=== PATIENT | female | born 1980 | race American Indian/Alaskan Native ===

== ENCOUNTER 2020-06-08 15:54 | Emergency (ER) | payer OTHER ==
[2020-06-08 17:05] VITALS: BP 118/69
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
== END 2020-06-08 19:20 | disposition home or self-care (01) ==
LOC: ED 15:54
DX: S13.4XXA Sprain of ligaments of cervical spine, initial encounter (principal); S39.012A Strain of muscle, fascia and tendon of lower back, initial encounter; S46.912A Strain of unspecified muscle, fascia and tendon at shoulder and upper arm level, left arm, initial encounter; Z79.899 Other long term (current) drug therapy; Z98.890 Other specified postprocedural states; V49.49XA Driver injured in collision with other motor vehicles in traffic accident, initial encounter; Y92.410 Unspecified street and highway as the place of occurrence of the external cause; Y93.89 Activity, other specified; Y99.8 Other external cause status
CPT/HCPCS: 72040; 72070; 72100

== ENCOUNTER 2020-10-11 09:35 | Emergency (ER) | payer OTHER ==
[2020-10-11] MEDS ORDERED: dexAMETHasone 4 MG/ML VIAL IM STA (14:09)
[2020-10-11] MEDS ORDERED: ACETAMINOPHEN 500 MG TAB PO ONE (14:09)
[2020-10-11] MEDS ORDERED: IBUPROFEN 800 MG TAB PO STA (14:09)
--- NOTE | 2020-10-11 14:16 | Emergency Department Report ---
ED General Adult HPI - General Chief complaint: Headache Stated complaint: SEVERE HEADACHE LT SODE SWELLING Time Seen by Provider: 10/11/20 11:47 Source: patient Mode of arrival: Ambulatory Limitations: No Limitations - History of Present Illness Initial comments: 40-year-old -[place] female presents with complaints of left-sided headache and forehead swelling x2 days. She denies any vision changes, nausea/vomiting, fever/chills/sweats, worst headache of her life/thunderclap onset, dizziness, numbness/tingling/weakness in her limbs, or difficulty with speech/ambulation. She rates her current headache as 8/10 in severity states it is not improved with Tylenol. No history of migraines per patient. She also denies any nasal congestion or ear pain. No past medical history per patient. - Related Data Previous Rx's Medication Instructions Recorded Last Taken Type Amoxicillin/Potassium Clav 1 each PO BID 10 Days #20 tablet 10/11/20 Unknown Rx [Augmentin 875-125 Tablet] Naproxen 500 mg PO Q12H PRN #12 tablet 10/11/20 Unknown Rx Prednisone [predniSONE 10 mg 10 mg PO .TAPER #1 tab.ds.pk 10/11/20 Unknown Rx (6-Day Pack, 21 Tabs)] Allergies Allergy/AdvReac Type Severity Reaction Status Date / Time No Known Allergies Allergy Verified 10/11/20 11:40 ED Review of Systems ROS: Stated complaint: SEVERE HEADACHE LT SODE SWELLING Other details as noted in HPI Constitutional: denies: chills, fever, malaise ENT: denies: ear pain, throat pain Respiratory: denies: cough Cardiovascular: denies: chest pain Skin: denies: rash, change in color Neurological: headache. denies: numbness, paresthesias, abnormal gait ED Past Medical Hx - Past Medical History Previous Medical History?: No - Surgical History Additional Surgical History: R -carpel tunnel - Social History Smoking Status: Never Smoker Substance Use Type: None - Medications Home Medications: Home Medications Medication Instructions Recorded Confirmed Last Taken Type Amoxicillin/Potassium Clav 1 each PO BID 10 Days #20 tablet 10/11/20 Unknown Rx [Augmentin 875-125 Tablet] Naproxen 500 mg PO Q12H PRN #12 tablet 10/11/20 Unknown Rx Prednisone [predniSONE 10 mg 10 mg PO .TAPER #1 tab.ds.pk 10/11/20 Unknown Rx (6-Day Pack, 21 Tabs)] ED Physical Exam - General Limitations: No Limitations General appearance: alert, in no apparent distress - Head Head exam: Present: atraumatic, normocephalic - Eye Eye exam: Present: normal appearance. Absent: scleral icterus - ENT ENT exam: Present: normal exam, TM's normal bilaterally, other (Tenderness to palpation noted to the left frontal sinuses and ethmoid sinuses with minimal overlying swelling; no erythema is noted; there is tenderness over the left temporal area also without obvious swelling of the temporal artery) - Neck Neck exam: Present: normal inspection, full ROM. Absent: tenderness - Respiratory Respiratory exam: Present: normal lung sounds bilaterally. Absent: respiratory distress - Cardiovascular Cardiovascular Exam: Present: regular rate, normal rhythm. Absent: systolic murmur, diastolic murmur, rubs, gallop - Neurological Exam Neurological exam: Present: alert, oriented X3, CN II-XII intact, normal gait. Absent: motor sensory deficit - Expanded Neurological Exam Expanded Cerebellar function: Finger to Nose: Normal, Heel to English: Normal, Romberg: Normal Sensory exam: Upper Extremity Light Touch: Normal, Lower Extremity Light Touch: Normal Motor strength exam: RUE: 4, LUE: 4, RLE: 4, LLE: 4 Best Eye Response (Sterling): (4) open spontaneously Best Motor Response (Sterling): (6) obeys commands Best Verbal Response (Luis): (5) oriented Luis Total: 15 - Psychiatric Psychiatric exam: Present: normal affect, normal mood - Skin Skin exam: Present: warm, dry, intact, normal color. Absent: rash ED Course Vital Signs 10/11/20 10/11/20 11:44 15:26 Temperature 98.2 F Pulse Rate 64 78 Respiratory 20 18 Rate Blood Pressure 118/72 Blood Pressure 120/70 [Left] O2 Sat by Pulse 100 97 Oximetry ED Medical Decision Making - Lab Data Result diagrams: 10/11/20 13:00 Lab Results 10/11/20 10/11/20 10/11/20 Range/Units 13:00 13:00 13:00 WBC 4.6 (4.5-11.0) K/mm3 RBC 3.71 (3.65-5.03) M/mm3 Hgb 9.6 L (10.1-14.3) gm/dl Hct 29.6 L (30.3-42.9) % MCV 80 (79-97) fl MCH 26 L (28-32) pg MCHC 33 (30-34) % RDW 15.3 H (13.2-15.2) % Plt Count 292 (140-440) K/mm3 Lymph % (Auto) 36.9 H (13.4-35.0) % Alcorn % (Auto) 7.9 H (0.0-7.3) % Eos % (Auto) 2.9 (0.0-4.3) % Baso % (Auto) 0.8 (0.0-1.8) % Lymph # (Auto) 1.7 (1.2-5.4) K/mm3 Alcorn # (Auto) 0.4 (0.0-0.8) K/mm3 Eos # (Auto) 0.1 (0.0-0.4) K/mm3 Baso # (Auto) 0.0 (0.0-0.1) K/mm3 Seg Neutrophils % 51.5 (40.0-70.0) % Seg Neutrophils # 2.4 (1.8-7.7) K/mm3 ESR 14 (0-20) mm/Hr C-Reactive Protein 0.10 (0.00-1.30) mg/dL HCG, Qual Negative (Negative) - Medical Decision Making 40-year-old -[place] female presents with complaints of left-sided headache and forehead swelling x2 days. She denies any vision changes, nausea/vomiting, fever/chills/sweats, worst headache of her life/thunderclap onset, dizziness, numbness/tingling/weakness in her limbs, or difficulty with speech/ambulation. She rates her current headache as 8/10 in severity states it is not improved with Tylenol. No history of migraines per patient. She also denies any nasal congestion or ear pain. No past medical history per patient. No significant abnormalities noted on CBC, ESR, or CRP. Neuro exam is normal. Pain swelling and sinus area for sinusitis with prednisone and Augmentin. Patient follows up within 2 days for recheck with her primary care doctor (she states she does currently follow with a PCP). Her vitals are are normal, she is well-appearing, she is stable for discharge home. Discussed presumptive diagnosis, care plan, signs and symptoms that should prompt immediate return to the emergency department with patient who verbalized understanding. Critical care attestation.: If time is entered above; I have spent that time in minutes in the direct care of this critically ill patient, excluding procedure time. ED Disposition Clinical Impression: Headache, acute, Frontal sinus pain Disposition: HOME / SELF CARE / HOMELESS Is pt being admited?: No Condition: Stable Instructions: Sinus Headache Prescriptions: Amoxicillin/Potassium Clav [Augmentin 875-125 Tablet] 1 each PO BID 10 Days #20 tablet Naproxen 500 mg PO Q12H PRN #12 tablet PRN Reason: Pain , Severe (7-10) Prednisone [predniSONE 10 mg (6-Day Pack, 21 Tabs)] 10 mg PO .TAPER #1 tab.ds.pk Referrals: PRIMARY CARE, [Primary Care Provider] - 3-5 Days Forms: Work/School Release Form(ED)
[2020-10-11 14:19] LABS: Erythrocyte Sedimentation Rate 14 mm/Hr (0-20)
[2020-10-11 14:51] LABS: Basophils % (Auto) 0.8 % (0.0-1.8); Eosinophils # (Auto) 0.1 K/mm3 (0.0-0.4); Eosinophils % (Auto) 2.9 % (0.0-4.3); Hematocrit 29.6 % (30.3-42.9); Hemoglobin 9.6 gm/dl (10.1-14.3); Lymphocytes # (Auto) 1.7 K/mm3 (1.2-5.4); Lymphocytes % (Auto) 36.9 % (13.4-35.0); Mean Corpuscular HGB Conc 33 % (30-34); Mean Corpuscular Volume 80 fl (79-97); Monocytes # (Auto) 0.4 K/mm3 (0.0-0.8); Monocytes % (Auto) 7.9 % (0.0-7.3); Platelet Count 292 K/mm3 (140-440); Red Blood Count 3.71 M/mm3 (3.65-5.03); Red Cell Distribution Width 15.3 % (13.2-15.2)
[2020-10-11 15:27] VITALS: BP 120/70
== END 2020-10-11 15:27 | disposition home or self-care (01) ==
LOC: ED 09:35
DX: R51.9 Headache, unspecified (principal); J01.10 Acute frontal sinusitis, unspecified
CPT/HCPCS: 36415; 84703; 85025; 85652; 86140; 96372; 99283; J1100